=== PATIENT | male | born 1935 | race Caucasian/White ===

== ENCOUNTER → 2019-02-01 | Outpatient (CLI) | payer OTHER ==
[~2019-02-01] MED LIST: ASPIR 8181 MG PO; BYSTOLIC 5 MG5 M1 PO; CENTRUM SILVER1 EAC2 PO; CIPRO500 MG PO; CRANBERRY500 M3 PO; FINASTERIDE5 MG PO; FISH OIL 1,001000 M2 PO; IRBESARTAN300 MG PO; NORVASC5 MG PO; SIMVASTATIN40 MG PO; VITAMINC500 PO
--- NOTE | 2019-02-01 16:16 | EXE ---
[facility] [address] [place] [address] STRESS ECHOCARDIOGRAM Name: SERGIO MCCRAY Rl Room #: YOSEPH Bethea#: [id number] ������������� Admission: 02/01/19 ������������� Attend Phys: Aren Magana, Discharge: ��� ������������� ��� Date of : 39 Date of Service: 02/01/19 1616 �� Report #: [id number] �������� ��������������������������������������������[id number] THIS REPORT FOR: //name// APPROVED REPORT Study performed: 02/01/2019 09:11:51 EXAM: Comprehensive 2D, Doppler, and color-flow Echocardiogram Patient Location: Out-Patient Room #: Echo lab 2 Status: routine BSA: 2.09 HR: 67 bpm BP: 142/84 mmHg Rhythm: NSR Other Information Study Quality: Good Indications CAD Cardiomyopathy Hypertension/HDD 2D Dimensions RVDd: 38.86 mm IVSd: 11.07 (7-11mm) LVOT Diam: 23.56 (18-24mm) LVDd: 57.80 mm PWd: 10.94 (7-11mm) Ascending Ao: 36.02 (22-36mm) LVDs: 49.62 (25-40mm) Aortic Root: 36.47 mm IVC: 18.00 mm Volumes Left Atrial Volume (Systole) Single Plane 4CH: 58.90 mL Single Plane 2CH: 71.99 mL LA ESV Index: 35.00 mL/m2 Aortic Valve AoV Peak Alexis.: 0.83 m/s AO Peak Gr.: 2.73 mmHg LVOT Max P.10 mmHg LVOT Max V: 0.73 m/s MARCO Vmax: 3.83 cm2 Mitral Valve [facility] [address] [address] STRESS ECHOCARDIOGRAM Name: SERGIO MCCRAY Room #: REG Lake#: [id number] ������������� Admission: 02/01/19 ������������� Attend Phys: Aren Magana, Discharge: ��� ������������� ��� Date of : 39 Date of Service: 02/01/19 1616 �� Report #: [id number] �������� ��������������������������������������������[id number] E/A Ratio: 0.5 MV Decel. Time: 414.97 ms MV E Max Alexis.: 0.35 m/s MV A Alexis.: 0.69 m/s MV PHT: 120.34 ms IVRT: 96.89 ms Pulmonary Valve PV Peak Alexis.: 0.89 m/s PV Peak Gr.: 3.21 mmHg Pulmonary Vein P Vein S: 0.44 m/s P Vein A: 0.20 m/s P Vein D: 0.40 m/s P Vein A Dur.: 96.9 msec P Vein S/D Ratio: 1.10 Tricuspid Valve TR Peak Alexis.: 2.91 m/s TR Peak Gr.: 33.90 mmHg PA Pressure: 39.00 mmHg Left Ventricle Left ventricle is mildly dilated. There is global hypokinesis of the left ventricle. There is normal left ventricular wall thickness. Left ventricular ejection fraction is moderate to severely decreased. LVEF is 30%. Grade I - abnormal relaxation pattern. Right Ventricle The right ventricle is normal size. The right ventricular systolic function is normal. Atria Left atrium is dilated. Right atrium is dilated. Aortic Valve The aortic valve is normal in structure. Mild aortic regurgitation. There is no aortic valvular stenosis. Mitral Valve The mitral valve is normal in structure. Mild mitral regurgitation. No evidence of mitral valve stenosis. Tricuspid Valve The tricuspid valve is normal in structure. There is mild tricuspid regurgitation. Estimated PAP 39 mmHg. There is mild pulmonary hypertension. [facility] [address] [place] [address] STRESS ECHOCARDIOGRAM Name: SERGIO MCCRAY Room #: YOSEPH STUART Bethea#: [id number] ������������� Admission: 02/01/19 ������������� Attend Phys: Aren Magana, Discharge: ��� ������������� ��� Date of : 39 Date of Service: 02/01/19 1616 �� Report #: [id number] �������� ��������������������������������������������[id number] Pulmonic Valve The pulmonary valve is normal in structure. Trace pulmonic regurgitation. Great Vessels The aortic root is normal in size. IVC is normal in size and collapses >50% with inspiration. Pericardium There is no pericardial effusion. <Conclusion> Left ventricle is mildly dilated. There is global hypokinesis of the left ventricle. Left ventricular ejection fraction is moderate to severely decreased. LVEF is 30%. Grade I - abnormal relaxation pattern. The right ventricle is normal size. Left atrium is dilated. Right atrium is dilated. Mild aortic regurgitation. Mild mitral regurgitation. There is mild tricuspid regurgitation. Estimated PAP 39 mmHg. There is mild pulmonary hypertension. The aortic root is normal in size. There is no pericardial effusion. ��������������������������������������������� <ELECTRONICALLY SIGNED> ���������������������������������������� By: Aren Magana MD, FACC ��������������������������������������������� 02/01/19 1616 161 [id number] Aren Magana MD, FACC /INF
== END ==
LOC: CV 08:00
DX: I08.3 Combined rheumatic disorders of mitral, aortic and tricuspid valves (principal); I25.10 Atherosclerotic heart disease of native coronary artery without angina pectoris; I42.9 Cardiomyopathy, unspecified; I27.20 Pulmonary hypertension, unspecified; Z88.8 Allergy status to other drugs, medicaments and biological substances; Z88.1 Allergy status to other antibiotic agents

== ENCOUNTER → 2019-02-06 | Outpatient (CLI) | payer OTHER ==
[~2019-02-06] VITALS: Ht 180.3 cm; Wt 88.5 kg
[2019-02-06 08:03] VITALS: BP 154/71
[2019-02-06 08:04] LABS: HEMATOCRIT 40.4 % (42.0-52.0); HEMOGLOBIN 13.3 gm/dL (14.0-18.0); MCH 30.7 pg (26.0-34.0); MCHC 32.9 g/dL (28.0-37.0); MCV 93.4 fL (80.0-100.0); RBC 4.32 mil/uL (4.50-6.00); RDW 13.8 % (10.5-14.5); WBC 5.6 thou/uL (4.0-11.0)
--- NOTE | 2019-02-06 08:08 | EKG ---
[place] [address] [facility] [place] [address] ELECTROCARDIOGRAM REPORT Name: SERGIO MCCRAY [facility]: [facility] [id number] ������������������ Admission: 02/06/19 ������������������ Attend Phys: Aren Magana MD, Discharge: ������������������ Date of : 39 Report #: [id number] ����������������������������������������������������������������� [id number] THIS REPORT FOR: //name// [facility] Test Date: 2019-02-06 Test Time: 07:49:16 Pat Name: SERGIO MCCRAY Department: Room: Gender: Vp Site: [facility] : 1935 Requested By: Aren Magana Order Number: [id number] MD: Felipe Crouch Measurements Intervals [place] Rate: 60 P: 63 HI: 176 QRS: -41 QRSD: 121 T: 15 QT: 456 QTc: 456 Interpretive Statements Sinus rhythm Leftward axis Nonspecific intraventricular conduction delay No previous ECG available for comparison Electronically Signed On 02-06-2019 8:08:18 CDT by Felipe Crouch [email or web address] ��������������������������������������������� <ELECTRONICALLY SIGNED> ���������������������������������������� By: Felipe Crouch MD, [facility] ��������������������������������������������� 02/06/19 0808 0749 0749 Felipe Crouch MD, FACC /EPI
[2019-02-06 08:13] LABS: CALCIUM 9.2 mg/dL (8.5-10.1); CREATININE 1.5 mg/dL (0.7-1.3); POTASSIUM 4.2 mmol/L (3.5-5.1)
--- NOTE | 2019-02-06 15:40 | CATHLAB ---
[facility] [employer] [place] [address] INVASIVE PROCEDURE REPORT Name: SERGIO MCCRAY Room #: REG STUART Lake#: [id number] ������������� Admission: 02/06/19 ������������� Attend Phys: Aren Magana, Discharge: ��� ������������� ��� Date of : 39 Date of Service: 02/06/19 1540 �� Report #: [id number] �������� ��������������������������������������������[id number] THIS REPORT FOR: //name// APPROVED REPORT Study performed: 02/06/2019 08:45:20 Patient Details Patient Status: Out-Patient Room #: The patient is a 83 year-old male Event Personnel Aren Magana Low Voltage Technician, Stalin Montoya RN, Nathan Hidalgo RN RN, Maria Luisa Pena, Trenton Maxwell RTR Scrub Procedures Performed Art Access - R femoral artery* Ben Access - R femoral vein Right and Left Heart Cath Lt Vent/Cors/Grafts [id number] RLLVCORCAB 61038 Initial Mod Sed Same Phys/QHP Gr5y [id number] Mod Sed Same Phys/QHP Ea [id number] Hemostasis w/ Mynx Indication Chest pain Procedure Narrative The Right Groin^ was infiltrated with subcutaneous anesthesia. A Right Heart Catheterization was performed with a 7 Fr. Triangle-Ginger catheter and pressure were recorded. Cardiac outputs were obtained by the Thermal Dilution method. A AGNITiONACLE 6FR Sheath #[id number] sheath was inserted into the RFA 6F^. Coronary angiography was performed using coronary diagnostic catheters. The right coronary system was accessed and visualized with a jr4 catheter. The left coronary system was accessed and visualized with a jl4 catheter. The left ventricle was accessed and visualized with a st.pig catheter. Left ventriculogram was performed in 30 degree projection. Closure device was deployed with a Fr MYNXGRIP 6/7F #[id number]. There was no hematoma. grafts: svg to diag., svg to the diag., svg. to the om. cardiac outputs: 4.8 4.7 Intraoperative Conscious Sedation Sedation start time: 926 Case end Time: 1004 Fentanyl 100 mcg Versed [address] [address] INVASIVE PROCEDURE REPORT Name: MAHENDRASERGIO [facility] [id number] ������������� Admission: 02/06/19 ������������� Attend Phys: Aren Magana, Discharge: ��� ������������� ��� Date of : 39 Date of Service: 02/06/19 1540 �� Report #: [id number] �������� ��������������������������������������������[id number] Fluoro Time: 9.47 minutes Dose: DAP 6798.20 cGycm2 714 mGy Contrast Type and Amount: Visipaque 110 ml Hemodynamics The pulmonary artery pressure is 38/9 mmHg with a mean of 22 mmHg. The aortic pressure is 171/66 mmHg with a mean of 75 mmHg. The left ventricular pressure is 160/7 mmHg with a mean of mmHg. Conclusion #1 successful right heart catheterization with cardiac output by thermodilution see above hemodynamics #2 normal left ventricular size with mild to moderate global hypokinesis EF 40-45% range. (Improved over recent echo findings) #3 left main with mild irregularities giving rise to LAD and circumflex #4 the LAD proximally occludes after large septal receiving distribution station operator it is filled via a SULLIVAN graft. 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 The circumflex is small in the AV groove and patent #7 dominant right coronary artery is mildly ectatic diffuse disease in the PDA AYAN 50-60% distally at the bifurcation. No indication for intervention. I do not see evidence of a prior graft to this vessel. #8 SVG to the large first OM is widely patent filling a moderate size system briskly. Recommendations and plan: Continue aggressive risk factor modification. We'll continue ARB and beta mayito. Pulmonary pressures not elevated will hold on any further diuretic. ��������������������������������������������� <ELECTRONICALLY SIGNED> ���������������������������������������� By: Aren Magana MD, FACC ��������������������������������������������� 02/06/19 1540 1540 1540 Aren Magana MD, FACC /INF
== END | disposition home or self-care (01) ==
LOC: CATH 07:16
PROVIDERS: Internal Medicine Cardiovascular Disease
DX: I25.10 Atherosclerotic heart disease of native coronary artery without angina pectoris (principal); I12.9 Hypertensive chronic kidney disease with stage 1 through stage 4 chronic kidney disease, or unspecified chronic kidney disease; N18.9 Chronic kidney disease, unspecified; E78.00 Pure hypercholesterolemia, unspecified; I25.2 Old myocardial infarction; I42.9 Cardiomyopathy, unspecified; F32.9 Major depressive disorder, single episode, unspecified; K21.9 Gastro-esophageal reflux disease without esophagitis; N40.0 Benign prostatic hyperplasia without lower urinary tract symptoms; Z87.891 Personal history of nicotine dependence; Z95.1 Presence of aortocoronary bypass graft; Z98.890 Other specified postprocedural states; Z87.440 Personal history of urinary (tract) infections; Z79.82 Long term (current) use of aspirin; Z79.899 Other long term (current) drug therapy

== ENCOUNTER → 2020-02-17 | Outpatient (CLI) | payer OTHER | LOC: SJCVC 12:54 | PROVIDERS: ATTEND Internal Medicine Cardiovascular Disease | DX: I44.7 Left bundle-branch block, unspecified (principal); I25.810 Atherosclerosis of coronary artery bypass graft(s) without angina pectoris; I10 Essential (primary) hypertension; E78.00 Pure hypercholesterolemia, unspecified; E78.1 Pure hyperglyceridemia; I42.9 Cardiomyopathy, unspecified; I38 Endocarditis, valve unspecified; I25.2 Old myocardial infarction; M85.80 Other specified disorders of bone density and structure, unspecified site; Z79.899 Other long term (current) drug therapy; Z95.1 Presence of aortocoronary bypass graft; Z79.82 Long term (current) use of aspirin; Z87.891 Personal history of nicotine dependence ==

== ENCOUNTER → 2020-09-30 | Outpatient (CLI) | payer OTHER | LOC: SJCVC 15:53 | PROVIDERS: ATTEND Internal Medicine Cardiovascular Disease | DX: I25.10 Atherosclerotic heart disease of native coronary artery without angina pectoris (principal); R94.31 Abnormal electrocardiogram [ECG] [EKG]; E78.00 Pure hypercholesterolemia, unspecified; I38 Endocarditis, valve unspecified; I25.5 Ischemic cardiomyopathy; I65.23 Occlusion and stenosis of bilateral carotid arteries; I12.9 Hypertensive chronic kidney disease with stage 1 through stage 4 chronic kidney disease, or unspecified chronic kidney disease; N18.30 Chronic kidney disease, stage 3 unspecified; I25.2 Old myocardial infarction; M81.0 Age-related osteoporosis without current pathological fracture; G47.30 Sleep apnea, unspecified; Z95.1 Presence of aortocoronary bypass graft; Z98.890 Other specified postprocedural states; Z88.8 Allergy status to other drugs, medicaments and biological substances; Z79.899 Other long term (current) drug therapy; Z87.891 Personal history of nicotine dependence ==

== ENCOUNTER → 2021-05-26 | Outpatient (CLI) | payer OTHER | LOC: SJCVC 12:53 | PROVIDERS: ATTEND Internal Medicine Cardiovascular Disease | DX: R94.31 Abnormal electrocardiogram [ECG] [EKG] (principal); I25.810 Atherosclerosis of coronary artery bypass graft(s) without angina pectoris; I10 Essential (primary) hypertension; E78.00 Pure hypercholesterolemia, unspecified; I65.23 Occlusion and stenosis of bilateral carotid arteries; F32.9 Major depressive disorder, single episode, unspecified; G47.30 Sleep apnea, unspecified; N40.0 Benign prostatic hyperplasia without lower urinary tract symptoms; I42.9 Cardiomyopathy, unspecified; Z87.891 Personal history of nicotine dependence; Z95.1 Presence of aortocoronary bypass graft; Z88.2 Allergy status to sulfonamides; Z88.8 Allergy status to other drugs, medicaments and biological substances; Z79.899 Other long term (current) drug therapy ==

== ENCOUNTER → 2021-06-23 | Outpatient (CLI) | payer OTHER | LOC: SJCVCIMAG 07:07 | PROVIDERS: ATTEND Internal Medicine Cardiovascular Disease | DX: I12.9 Hypertensive chronic kidney disease with stage 1 through stage 4 chronic kidney disease, or unspecified chronic kidney disease (principal); N18.9 Chronic kidney disease, unspecified; E78.00 Pure hypercholesterolemia, unspecified; I25.10 Atherosclerotic heart disease of native coronary artery without angina pectoris; F32.9 Major depressive disorder, single episode, unspecified; G47.30 Sleep apnea, unspecified; N40.0 Benign prostatic hyperplasia without lower urinary tract symptoms; I34.0 Nonrheumatic mitral (valve) insufficiency; Z79.82 Long term (current) use of aspirin; Z95.1 Presence of aortocoronary bypass graft; Z79.899 Other long term (current) drug therapy; Z88.2 Allergy status to sulfonamides; Z88.8 Allergy status to other drugs, medicaments and biological substances; Z87.891 Personal history of nicotine dependence ==